=== PATIENT | female | born 1935 | race Caucasian/White ===

== ENCOUNTER → 2019-09-17 | Outpatient (CLI) | payer MEDICARE ==
[~2019-09-17] MED LIST: ASPI81TA85 PO; CALC600T60 PO; DOCU-129 PO; ENAL20TA PO; FIBE625T PO; FLUT15.820 NARES; GNP1000T11 PO; HYDR25TAB PO; KLOR10TA76 PO; NEUR300C PO; NORV5TAB PO; OMEP-221 PO; OXYB10TA23 PO; OXYC-517 PO; OYST1TAB PO; PURE500C5 PO; SM I PO; VITA500C24 PO; ZYRTTAB8 PO
== END ==
LOC: M LABSMTC 12:40
PROVIDERS: ATTEND Anesthesiology
DX: Z03.818 Encounter for observation for suspected exposure to other biological agents ruled out (principal); Z11.59 Encounter for screening for other viral diseases
CPT/HCPCS: C9803; U0003

== ENCOUNTER 2019-09-21 07:50 | Inpatient (IN) | payer MEDICARE ==
--- NOTE | 2019-09-17 06:43 | HPE ---
DATE OF ADMISSION: 09/21/2019 CHIEF COMPLAINT: Lumbar spinal stenosis. HISTORY OF PRESENT ILLNESS: Huma is a pleasant 83-year-old female with progressively worsening degenerative disk disease and spinal stenosis of the lumbar spine. She has failed to improve with conservative treatment. She has elected for surgery for her continued symptoms. She has pain with weightbearing activities and her activities of daily living. MRI is notable for significant degenerative disk disease and severe spinal stenosis. She has consented for a right sided L4-L5 unilateral laminectomy with a fusion in situ by Dr. Geoffrey Robertson. Medical optimization was performed by Dr. Lee. ALLERGIES: None. CURRENT MEDICATIONS: - oxybutynin 10 mg once a day - loratadine 10 mg a day - omeprazole 40 mg a day - baby aspirin once a day - calcium 600 mg plus D two tablets in the morning - amlodipine 5 mg in the a.m. - ibuprofen 600 mg twice a day - bisacodyl 5 mg one in the morning - hydrochlorothiazide 25 mg one in the morning - potassium 10 mEq one in the morning - enalapril 20 mg two in the morning - glucosamine chondroitin two in the morning and one in the evening - gabapentin 300 mg three times a day - vitamin C 500 mg one in the morning and one in the evening PAST MEDICAL HISTORY: 1. Hypertension. 2. Gastroesophageal reflux disease. PAST SURGICAL HISTORY: Not given. SOCIAL HISTORY: She is retired. Does not smoke. Does not drink alcohol. FAMILY HISTORY: Noncontributory. REVIEW OF SYSTEMS: This patient denies chest pain, heart palpitations, cough, wheezing, difficulty breathing and shortness of breath. She denies abdominal pain, nausea, vomiting, diarrhea or constipation. She denies recent upper respiratory infection or urinary tract infection symptoms. She does complain of chronic back pain. PHYSICAL EXAMINATION: General: She is a well-nourished, well-developed, in mild distress, alert female who walks with significant difficulty using a walker. Vital Signs: She is 62 inches tall, weighs 160 pounds, with a temperature of 97 degrees Fahrenheit, blood pressure 134/74, pulse of 72 and respirations of 17. Neck was supple without adenopathy or jugular venous distention. Lungs were clear to auscultation without rales or wheeze. Heart: Regular rate and rhythm. Abdomen: Bowel sounds were present. Extremities: Examination of the back revealed intact skin. LABORATORY DATA: Chest x-ray showed no acute cardiopulmonary disease processes. EKG showed 73 beats per minute. Blood type O+. CBC showed a hemoglobin of 11.4, hematocrit of 34.5, MCV of 76.3 and MCH of 25.2, otherwise within normal limits. Sodium 130, potassium 4.4, BUN 20, creatinine 1.0. IMPRESSION: Symptomatic spinal stenosis. PLAN: Consented for a right L4-5 laminectomy with fusion in situ by Dr. Geoffrey Robertson.
[~2019-09-21] VITALS: Ht 160 cm; Wt 74.4 kg
[2019-09-21] VITALS (8 sets, daily range): BP systolic 126–147; BP diastolic 62–84
[2019-09-21] MEDS: GABAPENTIN 300 MG CAP PO ONE ×2 (06:45→08:19)
[~2019-09-21 07:50] MED LIST changes: +LACRILUBE (AKWA TEARS) OPHTH OINT 3.5 GM As Ordered ONE; +LIDOCAINE 2% 100MG/5ML SDV (FOR ANES.) As Ordered ONE; +LR 1,000 ML IV ONE; +MIDAZOLAM INJ 2MG/2ML VIAL (J2250 PER 1MG) As Ordered ONE; -OXYC-517 PO; +PERCOCET 5MG/325MG TAB PO ONE; +ROCURONIUM BROMIDE 50 MG/5 ML VIAL As Ordered ONE; +ceFAZolin SOD 2 GM in IV 1 EA IV ONE; +fentaNYL 250 MCG/5 ML INJECTION (J3010) As Ordered ONE; +propofoL 200 MG/20 ML VIAL As Ordered ONE
[2019-09-21] MEDS ORDERED: BUPIVACAINE/EPIN 0.25% 30 ML VIAL As Ordered ONE (08:16)
[2019-09-21] MEDS ORDERED: BACITRACIN PWD 50,000 UNITS VIAL As Ordered ONE (08:16)
[2019-09-21] MEDS ORDERED: VANCOMYCIN 500MG/10ML VIAL As Ordered ONE (08:16)
[2019-09-21] MEDS ORDERED: THROMBIN SOLN 20,000 UNITS KIT As Ordered ONE (08:16)
[2019-09-21] MEDS ORDERED: TRANEXAMIC ACID 100 MG/ML 10ML VIAL As Ordered ONE (10:08)
[2019-09-21] MEDS ORDERED: EPINEPHrine INJ 1 MG/ML 1ML AMP As Ordered ONE (10:12)
[2019-09-21] MEDS ORDERED: BUPIVACAINE LIPOSOME/PF 1.3% 20ML VIAL (13.3MG/ML)(EXPAREL)(C9290 PER1MG) As Ordered ONE (10:16)
[2019-09-21] MEDS ORDERED: BUPIVACAINE HCL 0.25% 10ML VIAL As Ordered ONE (10:16)
[2019-09-21] MEDS ORDERED: ONDANSETRON 4MG/2ML VIAL As Ordered ONE (10:26)
[2019-09-21] MEDS ORDERED: KETOROLAC 60MG 2ML VIAL As Ordered ONE (10:26)
[2019-09-21] MEDS ORDERED: ACETAMINOPHEN 1000MG 100ML IV BTL (OFIRMEV) (J0131 PER 10MG) As Ordered ONE (10:26)
[2019-09-21] MEDS ORDERED: dexameTHASONE 4 MG/ML 1ML VIAL (J1100 PER 1MG) As Ordered ONE (10:26)
[2019-09-21] MEDS ORDERED: ePHEDrine SULFATE 25 MG/5 ML(5MG/ML) SYRINGE As Ordered ONE (10:37)
[2019-09-21] MEDS ORDERED: PHENYLephrine HCL 500 MCG/5 ML (100MCG/ML) SYRINGE (J2370) As Ordered ONE (10:39)
[2019-09-21] MEDS ORDERED: HYDROmorphone HCL 2 MG/ML 1ML VIAL (J1170) As Ordered ONE (11:10)
--- NOTE | 2019-09-21 11:37 | REP ---
PORTABLE LATERAL LUMBAR SPINE: A portable lateral lumbar spine image is performed. There is a metallic probe posteriorly. The tip is at the L4-5 level. There is mild anterior listhesis of L4 on L5. There is mild to moderate disc space narrowing at that level as well. Unreviewed
[2019-09-21] MEDS ORDERED: NEOSTIGMINE 10MG/10ML VIAL (J2710 PER 0.5MG) As Ordered ONE (11:40)
[2019-09-21] MEDS ORDERED: GLYCOPYRROLATE INJ 0.2 MG/ML 2 ML VIAL As Ordered ONE (11:40)
[2019-09-21] MEDS ORDERED: MORPHINE 2 MG/ML 1ML VIAL (J2270) IV PRN (12:45)
[2019-09-21] MEDS ORDERED: ONDANSETRON 4MG/2ML VIAL IV PRN ×3 (12:45→13:45)
[2019-09-21] MEDS ORDERED: fentaNYL 100 MCG/2 ML INJECTION (J3010) IV PRN ×2 (12:45→13:45)
[2019-09-21] MEDS ORDERED: PERCOCET 5MG/325MG TAB PO PRN ×2 (12:45→13:45)
[2019-09-21] MEDS ORDERED: LR 1,000 ML IV SCH ×2 (12:45→13:45)
[2019-09-21] MEDS ORDERED: METOCLOPRAMIDE INJ 10MG/2ML VIAL (J2765 PER 1) As Ordered ONE (13:24)
[2019-09-21] MEDS ORDERED: METOCLOPRAMIDE INJ 10MG/2ML VIAL (J2765 PER 1) IV PRN (13:45)
[2019-09-21] MEDS ORDERED: ceFAZolin SOD 2 GM in IV 1 EA IV ONE (15:30)
--- NOTE | 2019-09-21 16:43 | HPEPDOC ---
[facility] Medical History & Physical Date of Admission Sep 21, 2019 Date of Service: Sep 21, 2019 Attending Physician: Ana Novoa MD History and Physical MEDICAL CONSULT NOTE HISTORY OF PRESENT ILLNESS: Patient is an 83-year-old female with past medical history of hypertension, MOHINI D, chronic pain secondary to degenerative disc disease and spinal stenosis of the lumbar spine who was admitted on 09/21/2019 to undergo right-sided L4-L5 unilateral laminectomy with fusion by orthopedic surgery. The patient has had progressively worsening spinal stenosis of the lumbar spine along with degenerative disc disease for some time. Conservative treatments were tried as o utpatient however failed 20 through with these. The patient prior to her surgery was having pain with weightbearing activities and was affecting her kidneys a day living. The patient lives independently in a senior home and ambulates with a walker normally. On 09/21/2019 the patient underwent right-sided L5-L4 unilateral laminectomy with fusion by Dr. Robertson. There were no intraoperative or postoperative complications. She was assessed by myself postoperatively and only complained some left-sided flank pain and nausea postop. She denied chest pain, shortness of breath, fevers, chills, vomiting, diarrhea, coughing. The patient has no acute complaints postoperatively. REVIEW OF SYSTEMS: CONSTITUTIONAL: Denies lack of energy, unexplained weight gain or weight loss, loss of appetite, fever, night sweats EYES: Denies eye drainage, eye pain, visual changes, dry/irritated eye EARS, NOSE, MOUTH, THROAT: Denies difficulty hearing, ringing in ears, mouth sores, loose teeth, sore throat, facial numbness or pain NECK: Denies swollen glands CARDIOVASCULAR: Denies irregular heartbeat, racing heart, chest pains, swelling of feet or legs, pain in legs with walking RESPIRATORY: Denies shortness of breath, night sweats, wheezing, sputum production, oxygen at home, coughing up blood, cough lasting > 1 month GASTROINTESTINAL: Denies abdominal pain, constipation, bloody stool, diarrhea, heartburn, nausea, vomiting GENITOURINARY: Denies painful urination, bloody urine, frequent urination, urgency, leaking urine, impotence MUSCULOSKELETAL: Denies leg swelling INTEGUMENTARY: Denies rash, itching, new skin lesion, change in existing skin lesion, hair loss or increase, breast changes. NEUROLOGICAL: Denies headaches, dizziness, difficulty walking, numbness or tingling PSYCHIATRIC: Denies depression, anxiety, recurrent bad thoughts, mood swings, hallucinations PAST MEDICAL HISTORY: 1. GERD 2. Hypertension 3. Chronic lower lumbar back pain secondary to spinal stenosis 4. Degenerative disc disease 5. Urinary incontinence 6. Hypokalemia 7. Hx of Constipation PAST SURGICAL HISTORY: 1. Right L4-L5 laminectomy with fusion 09/21/2019 2. Cataract surgery FAMILY HISTORY: Father: Lung cancer. at age 69 Mother: Lung and throat cancer. at age 83. SOCIAL HISTORY: Denies smoking history, denies alcohol or illicit drug use. The patient lives independently in senior housing by herself. She walks with a walker prior to her surgery. She is a DNR/DNI. ALLERGIES: Please see below. HOME MEDICATIONS: Please see below. PHYSICAL EXAMINATION: CONSTITUTIONAL: No acute distress, resting comfortably, AAO x 3 EYES: PERRLA, EOM intact HENT, MOUTH: Normocephalic, atraumatic, moist mucous membranes, nasal cannula in place NECK: SUPPLE, no JVD, no lymphadenopathy, no carotid bruit CV: Regular rate and rhythm, S1S2 normal, no murmurs/rubs/gallops RESPIRATORY: Clear to auscultation bilaterally, no rales/rhonchi/wheezes GI: BS positive in 4 quadrants, soft, nontender, nondistended, no rebound or guarding, no organomegaly : Deferred MUSCULOSKELETAL: Normal ROM. No cyanosis, clubbing, swelling, joint deformity, nonpitting lower extremity edema INTEGUMENTARY: Mild bilateral flank bruising, incision in lumbar area appears fresh, nonsuppurative, sealed. otherwise skin is intact, no rashes, no lesions NEUROLOGIC: Cranial Nerves II-XII are intact, no focal deficits PSYCHIATRIC: Mood and affect are normal LABORATORY DATA: Please see below IMAGING: Portable lateral lumbar spine XR: There is a metallic probe posteriorly. The tip is at the L4-5 level. There is mild anterior listhesis of L4 on L5. There is mild to moderate disc space narrowing at that level as well. ASSESSMENT: 83 y/o F with PMH of HTN, urinary incontinence, chronic lower back pain 2/2 to spinal stenosis and DDD POD 0 for right L4-L5 laminectomy with fusion. PLAN: 1. Lumbar spinal stenosis status post right L4-L5 laminectomy with fusion. -POD 0, VS stable on 2 LNC -Pain controlled on current regimen of oxy/APAP -PT/OT as per ortho, adding incentive spirometer Q2 hrs while awake -Orthopedic surgery primary 2. Chronic lumbar back pain 2/2 to spinal stenosis, DDD -C/w oxy/APAP, restarted home dose gabapentin TID -Bowel regimen in place -PT/OT 3. Supplemental O2 requirement post-op -Denies SOB, saturating well on 2 L NC, no cough -Caution while on IVFs, stop if patient is tolerating PO well. -Would advise to continue to wean off gradually -Added IS Q2hrs while awake 4. HTN -BP systolic 120-150, currently on IVFs -Starting on home antihypertensive meds -D/c fluids when taking good PO 5. Hypokalemia. -Restart home KCL supplement 6. Urinary incontinence -Resume home med 7. GERD -PPI 8. DVT px. -SCDs, TEDs. Start anticoagulation when cleared by surgery. DISPOSITION: Currently we are consulted for medical management with orthopedic surgery primary. Plan is hopefully this patient to be discharged back to independent living, will need PT/OT evaluation. Thank you kindly for this consult. Vital Signs Vital Signs Date Time Temp Pulse Resp B/P (MAP) Pulse Ox O2 Delivery O2 Flow Rate FiO2 09/21/19 16:00 18 09/21/19 15:44 96.7 92 143/78 (99) 97 Nasal Cannula 2.0 Home Medications Scheduled Amlodipine Besylate (Norvasc) 5 Mg Tablet, 5 MG PO DAILY Ascorbic Acid (Vitamin C) 500 Mg Capsule, 500 MG PO BID Aspirin (Aspir 81) 81 Mg Tablet.dr, 81 MG PO DAILY Calcium Carbonate (Calcium) 600 Mg Tablet, 600 MG PO BID Calcium Polycarbophil (Fibercon) 625 Mg Tablet, 625 MG PO BID Cetirizine HCl/Pseudoephedrine (Zyrtec-D Tablet) 1 Each Tab.er.12h, 1 TAB PO DAILY Docusate Sodium (Stool Softener) 100 Mg Capsule, 100 MG PO DAILY Enalapril Maleate (Enalapril Maleate) 20 Mg Tablet, 20 MG PO BID Fluticasone Propionate (Fluticasone Propionate) 15.8 Ml [place].susp, 2 SPRAY NARES DAILY Gabapentin (Neurontin) 300 Mg Capsule, 300 MG PO TID Glucosamine Sulfate Dipot Chlr (Glucosamine) 1,000 Mg Tablet, 1,500 MG PO BID Hydrochlorothiazide (Hydrochlorothiazide) 25 Mg Tablet, 25 MG PO DAILY Ibuprofen (Ibuprofen Ib) 200 Mg Tablet, 600 MG PO BID Omeprazole (Omeprazole) 40 Mg Capsule.dr, 40 MG PO DAILY Oxybutynin Chloride (Oxybutynin Chloride ER) 10 Mg Tab.er.24, 10 MG PO DAILY Potassium Chloride (Klor-Con M10) 10 Meq Tab.er.prt, 10 MEQ PO DAILY Allergies Coded Allergies: No Known Allergies (Unverified , 09/14/19) A-FIB/CHADSVASC A-FIB History Current/History of A-Fib/PAF?: No Current PO Anticoag Therapy: No Age/Risk Factor Scoring CHADSVASC: CHADSVASC Response (Comments) Value Age Risk Factor Age >/= 75 years old 2 Gender Risk Factor Female 1 Hx of CHF No 0 Hx of HTN Yes 1 Hx of Stroke/TIA/or VTE No 0 Hx of Diabetes No 0 Hx of Vascular Disease No 0 Total 4 Treatment Treatment ordered: NONE Other anticoagulant ordered: SCDs and TEDs for now, post-op Ana Novoa MD Sep 21, 2019 16:42
[2019-09-21] MEDS ORDERED: SENNA 8.6 MG TAB (SENOKOT) PO PRN (17:15)
[2019-09-21] MEDS ORDERED: PROMETHAZINE INJ 25 MG/ML VIAL (J2550) IV ONE (18:00)
[2019-09-21] MEDS: METAMUCIL (PSYLLIUM) PACKET PO SCH (18:11)
[2019-09-21] MEDS: GABAPENTIN 300 MG CAP PO SCH ×2 (18:14→20:36)
[2019-09-21 20:21] LABS: VENOUS BASE EXCESS -8.4 (-2.0-2.0); VENOUS HCO3 17.9 MEQ/L (23.0-27.0); VENOUS O2 SATURATION 86.5 % (60.0-80.0); VENOUS PARTIAL PRESSURE CO2 39.5 mmHg (38.0-50.0); VENOUS PARTIAL PRESSURE O2 54.5 mmHg (30.0-50.0); VENOUS PH 7.273 UNITS (7.330-7.430); VENOUS STANDARD HCO3 17.5 MEQ/L; VENOUS TOTAL CO2 19.1 MEQ/L (24.0-28.0)
[2019-09-21 20:31] LABS: HEMATOCRIT 33.7 % (36.0-47.0); MEAN CORPUSCULAR HEMOGLOBIN 25.8 pg (27.0-33.0); MEAN CORPUSCULAR HGB CONC 32.6 g/dl (32.0-36.5); MEAN CORPUSCULAR VOLUME 79.1 fl (80.0-96.0); PLATELET COUNT, AUTOMATED 235 10^3/uL (150-450); RED BLOOD COUNT 4.26 10^6/uL (4.00-5.40); WHITE BLOOD COUNT 15.5 10^3/uL (4.0-10.0)
[2019-09-21] MEDS: DOCUSATE SODIUM 100 MG CAP PO SCH (20:36)
[2019-09-21 20:48] LABS: BLOOD UREA NITROGEN 18 MG/DL (7-18); CALCIUM LEVEL 9.2 MG/DL (8.8-10.2); CARBON DIOXIDE LEVEL 23 MEQ/L (21-32); CHLORIDE LEVEL 104 MEQ/L (98-107); CREATININE FOR GFR 0.92 MG/DL (0.55-1.30); GLOMERULAR FILTRATION RATE > 60.0 (>32); GLUCOSE, FASTING 147 MG/DL (70-100); POTASSIUM SERUM 4.3 MEQ/L (3.5-5.1); SODIUM LEVEL 133 MEQ/L (136-145)
[2019-09-21] MEDS ORDERED: GABAPENTIN 300 MG CAP PO SCH (21:00)
[2019-09-22 02:00] VITALS: BP 131/60
[2019-09-22 06:00] VITALS: BP 104/57
[2019-09-22 06:11] LABS: HEMATOCRIT 30.1 % (36.0-47.0); HEMOGLOBIN 9.8 g/dl (12.0-15.5); MEAN CORPUSCULAR HEMOGLOBIN 25.6 pg (27.0-33.0); MEAN CORPUSCULAR HGB CONC 32.6 g/dl (32.0-36.5); MEAN CORPUSCULAR VOLUME 78.6 fl (80.0-96.0); PLATELET COUNT, AUTOMATED 241 10^3/uL (150-450); RED BLOOD COUNT 3.83 10^6/uL (4.00-5.40); WHITE BLOOD COUNT 13.7 10^3/uL (4.0-10.0)
[2019-09-22 06:40] LABS: ALT/SGPT 14 U/L (12-78); BILIRUBIN,TOTAL 0.2 MG/DL (0.2-1.0); BLOOD UREA NITROGEN 18 MG/DL (7-18); CALCIUM LEVEL 9.2 MG/DL (8.8-10.2); CARBON DIOXIDE LEVEL 23 MEQ/L (21-32); CHLORIDE LEVEL 102 MEQ/L (98-107); CREATININE FOR GFR 0.84 MG/DL (0.55-1.30); GLOMERULAR FILTRATION RATE > 60.0 (>32); GLUCOSE, FASTING 118 MG/DL (70-100); POTASSIUM SERUM 4.6 MEQ/L (3.5-5.1); SODIUM LEVEL 134 MEQ/L (136-145); TOTAL PROTEIN 5.7 GM/DL (6.4-8.2)
[2019-09-22] MEDS: amLODIPine 5 MG TAB PO SCH (08:37)
[2019-09-22] MEDS: hydroCHLOROthiazide 25 MG TAB PO SCH (08:39)
[2019-09-22] MEDS: METAMUCIL (PSYLLIUM) PACKET PO SCH (08:45)
[2019-09-22] MEDS: OMEPRAZOLE 20 MG CAP PO SCH (08:46)
[2019-09-22] MEDS: oxyBUTYnin *DITROPAN XL* 5 MG TABCR PO SCH (08:46)
[2019-09-22] MEDS: DOCUSATE SODIUM 100 MG CAP PO SCH ×2 (08:46→20:47)
[2019-09-22] MEDS: ACETAMINOPHEN TAB 650MG DOSE (2X325MG) PO PRN ×2 (08:46→16:17)
[2019-09-22] MEDS: GABAPENTIN 300 MG CAP PO SCH ×3 (08:46→20:48)
[2019-09-22] MEDS: FLUTICASONE PROP 0.05% NASAL SPRAY 16 GM (FLONASE) NARES SCH (08:46)
[2019-09-22] MEDS ORDERED: POTASSIUM CHLORIDE 10 MEQ SR TABLET PO SCH (09:00)
[2019-09-22 10:18] VITALS: BP 140/64
--- NOTE | 2019-09-22 12:17 | IPNPDOC ---
Text Note Date of Service The patient was seen on 09/22/19. NOTE Subjective: Patient is an 83-year-old female with PMHx of HTN, Chronic pain 2/2 DDD / Spinal stenosis, GERD who presented to [facility] for an elective orthopedic procedure. Hospitalist service with consultation for medical management. On 09/21/2019 the patient underwent right-sided L5-L4 unilateral laminectomy with fusion by Dr. Robertson. There were no intraoperative or postoperative complications. Patient was seen and examined at the bedside. Patient appears to be in no acute distress this morning. Denies any chest pain, short of breath, palpitations or cough. Has not expense, positive vomiting, abdominal pain. She has not yet expensive bowel movement. She will be working with physical therapy today. Objective: Vitals (See below) General: Lying in bed, appears comfortable, AAOx3 HEENT: NC, AT CVS: +S1S2 Lungs: Fair air entry b/l, no appreciable wheezing, rhonchi, rales Abdomen: Soft, ND, NT Extremities: No edema appreciated at lower extremities, - Calf tenderness Assessment and plan: Lumbar spinal stenosis - s/p right L4-L5 laminectomy with fusion - Has received outpatient medical clearance from her primary care provider - Pain control, anticoagulation and physical therapy at the direction of orthopedic surgery - Will start PT /O T today HTN - BP appears to be well controlled this morning - We'll place holding parameters on HCTZ and amlodipine Hx of Hypokalemia - Potassium levels normal - Will stop supplementation for now Urinary incontinence - c/w Oxybutynin GERD - c/w Omeprazole DVT prophylaxis - c/w TEDs/Sequentials - Anticoagulation as per orthopedic surgery Disposition: - c/w PT and OT - Anticipate DC tomorrow VS,Reedbone, I+O VS, Reedbone, I+O Laboratory Tests 09/21/19 20:15 09/22/19 05:33 Vital Signs Date Time Temp Pulse Resp B/P (MAP) Pulse Ox O2 Delivery O2 Flow Rate FiO2 09/22/19 10:18 98.4 98 16 140/64 (89) 95 Room Air 09/22/19 02:00 2.0 I&O- Last 24 Hours up to 6 AM 09/22/19 06:00 Intake Total 2520 ml Output Total 1090 ml Balance 1430 ml EDELMIRA DE ANDA MD Sep 22, 2019 12:17
[2019-09-22 14:15] VITALS: BP 127/62
[2019-09-22] MEDS: PERCOCET 5MG/325MG TAB PO PRN (20:48)
[2019-09-22 22:00] VITALS: BP 145/77
[2019-09-23 06:00] VITALS: BP 138/82
[2019-09-23] MEDS ORDERED: OXYC-517 PO (06:28)
[2019-09-23] MEDS: amLODIPine 5 MG TAB PO SCH (09:26)
[2019-09-23] MEDS: GABAPENTIN 300 MG CAP PO SCH ×3 (09:26→20:05)
[2019-09-23] MEDS: METAMUCIL (PSYLLIUM) PACKET PO SCH (09:26)
[2019-09-23] MEDS: hydroCHLOROthiazide 25 MG TAB PO SCH (09:27)
[2019-09-23] MEDS: OMEPRAZOLE 20 MG CAP PO SCH (09:27)
[2019-09-23] MEDS: DOCUSATE SODIUM 100 MG CAP PO SCH ×2 (09:27→20:05)
[2019-09-23] MEDS: FLUTICASONE PROP 0.05% NASAL SPRAY 16 GM (FLONASE) NARES SCH (09:27)
[2019-09-23] MEDS: oxyBUTYnin *DITROPAN XL* 5 MG TABCR PO SCH (09:27)
[2019-09-23] MEDS: PERCOCET 5MG/325MG TAB PO PRN ×2 (09:31→17:34)
--- NOTE | 2019-09-23 12:42 | IPNPDOC ---
Text Note Date of Service The patient was seen on 09/23/19. NOTE Subjective: Patient is an 83-year-old female with PMHx of HTN, Chronic pain 2/2 DDD / Spinal stenosis, GERD who presented to [facility] for an elective orthopedic procedure. Hospitalist service with consultation for medical management. On 09/21/2019 the patient underwent right-sided L5-L4 unilateral laminectomy with fusion by Dr. Robertson. There were no intraoperative or postoperative complications. Patient was seen and examined at the bedside. Patient is working with physical therapy, however, she feels that she is not ready to get home today. Denies a nausea, vomiting, chest pain, palpitations. Has been passing gas and has been urinating without any difficulty. Objective: Vitals (See below) General: Lying in bed, remains comfortable, AAOx3 HEENT: NC, AT CVS: +S1S2 Lungs: air entry is fair bilaterally without evidence of rhonchi, crackles or wheezing Abdomen: Soft, nondistended, without tenderness Extremities: Lower extremities are free of pitting edema, - Calf tenderness Assessment and plan: Lumbar spinal stenosis - s/p right L4-L5 laminectomy with fusion - Has received outpatient medical clearance from her primary care provider - Pain control, anticoagulation and physical therapy at the direction of orthopedic surgery - c/w PT / OT - anticipate discharge within 24 hours HTN - BP well controlled - Will place holding parameters on HCTZ and amlodipine Hx of Hypokalemia - Potassium levels normal - s/p Supplementation Urinary incontinence - c/w Oxybutynin GERD - c/w Omeprazole DVT prophylaxis - c/w TEDs/Sequentials - Anticoagulation as per orthopedic surgery Disposition: - c/w PT and OT; awaiting clearance - Will get lab work tomorrow AM VS,Fishbone, I+O VS, Fishbone, I+O Vital Signs Date Time Temp Pulse Resp B/P (MAP) Pulse Ox O2 Delivery O2 Flow Rate FiO2 09/23/19 10:01 18 Room Air 09/23/19 09:26 98 138/82 09/23/19 06:00 98.6 94 09/22/19 02:00 2.0 I&O- Last 24 Hours up to 6 AM 09/23/19 05:59 Intake Total 660 ml Output Total 550 ml Balance 110 ml EDELMIRA DE ANDA MD Sep 23, 2019 12:42
[2019-09-23 22:00] VITALS: BP 138/68
[2019-09-24 06:00] VITALS: BP 137/69
[2019-09-24 06:58] LABS: BASO % 0.2 % (0.0-1.0); EOS % 0.1 % (0.0-3.0); HEMATOCRIT 29.4 % (36.0-47.0); HEMOGLOBIN 9.8 g/dl (12.0-15.5); LYMPH # 0.8 10^3/uL (1.5-5.0); LYMPH % 5.7 % (24.0-44.0); MEAN CORPUSCULAR HEMOGLOBIN 25.8 pg (27.0-33.0); MEAN CORPUSCULAR HGB CONC 33.3 g/dl (32.0-36.5); MEAN CORPUSCULAR VOLUME 77.4 fl (80.0-96.0); MONO # 1.3 10^3/uL (0.0-0.8); MONO % 9.3 % (0.0-5.0); NEUTROPHILS # 11.9 10^3/uL (1.5-8.5); NEUTROPHILS % 84.1 % (36.0-66.0); PLATELET COUNT, AUTOMATED 213 10^3/uL (150-450); WHITE BLOOD COUNT 14.1 10^3/uL (4.0-10.0)
[2019-09-24 07:28] LABS: BLOOD UREA NITROGEN 13 MG/DL (7-18); CALCIUM LEVEL 8.8 MG/DL (8.8-10.2); CARBON DIOXIDE LEVEL 25 MEQ/L (21-32); CHLORIDE LEVEL 97 MEQ/L (98-107); CREATININE FOR GFR 0.69 MG/DL (0.55-1.30); GLOMERULAR FILTRATION RATE > 60.0 (>32); GLUCOSE, FASTING 97 MG/DL (70-100); MAGNESIUM LEVEL 1.7 MG/DL (1.8-2.4); POTASSIUM SERUM 3.8 MEQ/L (3.5-5.1); SODIUM LEVEL 131 MEQ/L (136-145)
[2019-09-24] MEDS: GABAPENTIN 300 MG CAP PO SCH ×3 (08:32→20:06)
[2019-09-24] MEDS: OMEPRAZOLE 20 MG CAP PO SCH (08:32)
[2019-09-24] MEDS: hydroCHLOROthiazide 25 MG TAB PO SCH (08:32)
[2019-09-24] MEDS: FLUTICASONE PROP 0.05% NASAL SPRAY 16 GM (FLONASE) NARES SCH (08:32)
[2019-09-24] MEDS: DOCUSATE SODIUM 100 MG CAP PO SCH ×2 (08:32→20:06)
[2019-09-24] MEDS: amLODIPine 5 MG TAB PO SCH (08:32)
[2019-09-24] MEDS: oxyBUTYnin *DITROPAN XL* 5 MG TABCR PO SCH (08:32)
[2019-09-24] MEDS: METAMUCIL (PSYLLIUM) PACKET PO SCH (08:32)
[2019-09-24] MEDS ORDERED: MAG SULF 1GM/100ML (MAG RUN) 1 GM in IV 1 EA IV ONE (11:00)
--- NOTE | 2019-09-24 11:18 | IPNPDOC ---
Text Note Date of Service The patient was seen on 09/24/19. NOTE Subjective: Patient is an 83-year-old female with PMHx of HTN, Chronic pain 2/2 DDD / Spinal stenosis, GERD who presented to [facility] for an elective orthopedic procedure. Hospitalist service with consultation for medical management. On 09/21/2019 the patient underwent right-sided L5-L4 unilateral laminectomy with fusion by Dr. Robertson. There were no intraoperative or postoperative complications. Patient was seen and examined at the bedside. Patient continues work with physical therapy, however, will likely require rehabilitation moving forward. Denies any problem. Overnight, has been having the ability to pass gas. Has not had any bowel movements. Denies any urinary discomfort. Objective: Vitals (See below) General: Lying in bed, appears comfortable, AAOx3 HEENT: NC, AT CVS: +S1S2 Lungs: There appears to be fair air entry bilaterally without evidence of rhonchi, crackles or wheezing Abdomen: Abdomen is soft, without any distention or tenderness Extremities: Again, no edema appreciated. Lower extremities, - Calf tenderness Assessment and plan: Lumbar spinal stenosis - s/p right L4-L5 laminectomy with fusion - Has received outpatient medical clearance from her primary care provider - Pain control, anticoagulation and physical therapy at the direction of orthopedic surgery - c/w PT / OT; recommendations for continued rehabilitation moving forward - possibly tomorrow HTN - BP well controlled - c/w HCTZ and amlodipine with hold parameters Hx of Hypokalemia - Potassium levels normal - Will resume supplementation Urinary incontinence - c/w Oxybutynin GERD - c/w Omeprazole DVT prophylaxis - c/w TEDs/Sequentials - Anticoagulation as per orthopedic surgery Disposition: - c/w PT and OT; awaiting clearance - Will get lab work tomorrow AM VS,Fishbone, I+O VS, Fishbone, I+O Laboratory Tests 09/24/19 06:38 Vital Signs Date Time Temp Pulse Resp B/P (MAP) Pulse Ox O2 Delivery O2 Flow Rate FiO2 09/24/19 08:32 97 137/69 09/24/19 06:00 98.6 17 92 Room Air 09/22/19 02:00 2.0 I&O- Last 24 Hours up to 6 AM 09/24/19 05:59 Intake Total 1360 ml Output Total 0 ml Balance 1360 ml EDELMIRA DE ANDA MD Sep 24, 2019 11:17
[2019-09-24] MEDS: POTASSIUM CHLORIDE 10 MEQ SR TABLET PO SCH (12:00)
[2019-09-24] MEDS: ACETAMINOPHEN TAB 650MG DOSE (2X325MG) PO PRN ×2 (12:00→20:06)
[2019-09-24 14:00] VITALS: BP 147/66
[2019-09-24 22:00] VITALS: BP 149/73
[2019-09-25] MEDS: ACETAMINOPHEN TAB 650MG DOSE (2X325MG) PO PRN ×2 (05:21→20:25)
[2019-09-25 05:29] VITALS: BP 131/84
[2019-09-25 07:11] LABS: BASO # 0.1 10^3/uL (0.0-0.2); BASO % 0.4 % (0.0-1.0); EOS # 0.1 10^3/uL (0.0-0.5); EOS % 0.9 % (0.0-3.0); HEMATOCRIT 27.8 % (36.0-47.0); HEMOGLOBIN 9.2 g/dl (12.0-15.5); LYMPH % 7.9 % (24.0-44.0); MEAN CORPUSCULAR HEMOGLOBIN 25.2 pg (27.0-33.0); MEAN CORPUSCULAR HGB CONC 33.1 g/dl (32.0-36.5); MEAN CORPUSCULAR VOLUME 76.2 fl (80.0-96.0); MONO # 1.6 10^3/uL (0.0-0.8); MONO % 12.9 % (0.0-5.0); NEUTROPHILS # 9.4 10^3/uL (1.5-8.5); NEUTROPHILS % 77.2 % (36.0-66.0); PLATELET COUNT, AUTOMATED 269 10^3/uL (150-450); RED BLOOD COUNT 3.65 10^6/uL (4.00-5.40); WHITE BLOOD COUNT 12.1 10^3/uL (4.0-10.0)
[2019-09-25 07:29] LABS: BLOOD UREA NITROGEN 13 MG/DL (7-18); CALCIUM LEVEL 8.8 MG/DL (8.8-10.2); CARBON DIOXIDE LEVEL 26 MEQ/L (21-32); CHLORIDE LEVEL 97 MEQ/L (98-107); CREATININE FOR GFR 0.75 MG/DL (0.55-1.30); GLOMERULAR FILTRATION RATE > 60.0 (>32); GLUCOSE, FASTING 92 MG/DL (70-100); MAGNESIUM LEVEL 1.9 MG/DL (1.8-2.4); POTASSIUM SERUM 3.7 MEQ/L (3.5-5.1); SODIUM LEVEL 131 MEQ/L (136-145)
[2019-09-25] MEDS: DOCUSATE SODIUM 100 MG CAP PO SCH ×2 (08:30→20:20)
[2019-09-25] MEDS: OMEPRAZOLE 20 MG CAP PO SCH (08:31)
[2019-09-25] MEDS: oxyBUTYnin *DITROPAN XL* 5 MG TABCR PO SCH (08:31)
[2019-09-25] MEDS: amLODIPine 5 MG TAB PO SCH (08:32)
[2019-09-25] MEDS: GABAPENTIN 300 MG CAP PO SCH ×3 (08:32→20:20)
[2019-09-25] MEDS: POTASSIUM CHLORIDE 10 MEQ SR TABLET PO SCH (08:32)
[2019-09-25] MEDS: METAMUCIL (PSYLLIUM) PACKET PO SCH (08:33)
[2019-09-25] MEDS: hydroCHLOROthiazide 25 MG TAB PO SCH (08:33)
[2019-09-25] MEDS: FLUTICASONE PROP 0.05% NASAL SPRAY 16 GM (FLONASE) NARES SCH (08:35)
--- NOTE | 2019-09-25 10:10 | IPNPDOC ---
Text Note Date of Service The patient was seen on 09/25/19. NOTE Subjective: Patient is an 83-year-old female with PMHx of HTN, Chronic pain 2/2 DDD / Spinal stenosis, GERD who presented to [facility] for an elective orthopedic procedure. Hospitalist service with consultation for medical management. On 09/21/2019 the patient underwent right-sided L5-L4 unilateral laminectomy with fusion by Dr. Robertson. There were no intraoperative or postoperative complications. Patient was seen and examined at the bedside. Patient reports that overnight she had a low-grade temperature. Reported some chills. Denies any nausea, vomiting, abdominal pain, diarrhea. Patient does report some lower abdominal discomfort. Denies any discomfort with urination. Objective: Vitals (See below) General: Lying in bed, is awake, alert and oriented and appears to be comfortable while in bed HEENT: NC, AT CVS: +S1S2 Lungs: There appears to be fair air entry bilaterally without evidence of rhonchi, crackles or wheezing Abdomen: Soft, mild tenderness noted at suprapubic region. No distention Extremities: Lower extremity are free of pitting edema, - Calf tenderness Assessment and plan: Lumbar spinal stenosis - s/p Right L4-L5 Laminectomy with fusion - Has received outpatient medical clearance from her primary care provider - Pain control, anticoagulation and physical therapy at the direction of orthopedic surgery - c/w PT / OT; recommendations for continued rehabilitation moving forward - possibly tomorrow Low grade temperature - Patient reports some chills - Mild leukocytosis persists - UA with possible signs of infection; Awaiting urine culture - Will start Cefdinir HTN - BP well controlled - c/w HCTZ and amlodipine with hold parameters Hx of Hypokalemia - Potassium levels normal - c/w supplementation Urinary incontinence - c/w Oxybutynin GERD - c/w Omeprazole DVT prophylaxis - c/w TEDs/Sequentials - Anticoagulation as per orthopedic surgery Disposition: - c/w PT and OT; awaiting clearance Greg HAN, I+O VSGreg, I+O Laboratory Tests 09/25/19 06:47 Vital Signs Date Time Temp Pulse Resp B/P (MAP) Pulse Ox O2 Delivery O2 Flow Rate FiO2 09/25/19 08:32 90 131/84 09/25/19 05:29 98.3 18 96 Room Air 09/22/19 02:00 2.0 I&O- Last 24 Hours up to 6 AM 09/25/19 06:00 Intake Total 500 ml Output Total 0 ml Balance 500 ml EDELMIRA DE ANDA MD Sep 25, 2019 10:10
[2019-09-25] MEDS: CEFDINIR 300 MG CAP (OMNICEF) PO SCH ×2 (11:07→20:20)
[2019-09-26 06:20] VITALS: BP 138/66
[2019-09-26 07:42] LABS: BASO # 0.1 10^3/uL (0.0-0.2); BASO % 0.6 % (0.0-1.0); EOS # 0.1 10^3/uL (0.0-0.5); EOS % 1.2 % (0.0-3.0); HEMATOCRIT 30.1 % (36.0-47.0); HEMOGLOBIN 9.8 g/dl (12.0-15.5); LYMPH # 1.3 10^3/uL (1.5-5.0); LYMPH % 12.1 % (24.0-44.0); MEAN CORPUSCULAR HEMOGLOBIN 25.3 pg (27.0-33.0); MEAN CORPUSCULAR HGB CONC 32.6 g/dl (32.0-36.5); MEAN CORPUSCULAR VOLUME 77.6 fl (80.0-96.0); MONO # 1.7 10^3/uL (0.0-0.8); MONO % 15.8 % (0.0-5.0); NEUTROPHILS # 7.4 10^3/uL (1.5-8.5); NEUTROPHILS % 69.5 % (36.0-66.0); PLATELET COUNT, AUTOMATED 336 10^3/uL (150-450); RED BLOOD COUNT 3.88 10^6/uL (4.00-5.40); WHITE BLOOD COUNT 10.6 10^3/uL (4.0-10.0)
[2019-09-26 07:51] LABS: BLOOD UREA NITROGEN 15 MG/DL (7-18); CARBON DIOXIDE LEVEL 24 MEQ/L (21-32); CHLORIDE LEVEL 96 MEQ/L (98-107); CREATININE FOR GFR 0.74 MG/DL (0.55-1.30); GLOMERULAR FILTRATION RATE > 60.0 (>32); GLUCOSE, FASTING 82 MG/DL (70-100); MAGNESIUM LEVEL 1.9 MG/DL (1.8-2.4); POTASSIUM SERUM 3.7 MEQ/L (3.5-5.1); SODIUM LEVEL 129 MEQ/L (136-145)
[2019-09-26] MEDS: oxyBUTYnin *DITROPAN XL* 5 MG TABCR PO SCH (09:04)
[2019-09-26] MEDS: POTASSIUM CHLORIDE 10 MEQ SR TABLET PO SCH (09:04)
[2019-09-26] MEDS: OMEPRAZOLE 20 MG CAP PO SCH (09:04)
[2019-09-26] MEDS: CEFDINIR 300 MG CAP (OMNICEF) PO SCH ×2 (09:04→20:25)
[2019-09-26] MEDS: hydroCHLOROthiazide 25 MG TAB PO SCH (09:05)
[2019-09-26] MEDS: amLODIPine 5 MG TAB PO SCH (09:05)
[2019-09-26] MEDS: GABAPENTIN 300 MG CAP PO SCH ×3 (09:05→20:25)
[2019-09-26] MEDS: DOCUSATE SODIUM 100 MG CAP PO SCH ×2 (09:05→20:25)
[2019-09-26] MEDS: METAMUCIL (PSYLLIUM) PACKET PO SCH (09:05)
[2019-09-26] MEDS: FLUTICASONE PROP 0.05% NASAL SPRAY 16 GM (FLONASE) NARES SCH (09:06)
[2019-09-26] MEDS: ACETAMINOPHEN TAB 650MG DOSE (2X325MG) PO PRN ×2 (09:10→20:25)
[2019-09-26 14:00] VITALS: BP 139/63
[2019-09-27 06:25] VITALS: BP 139/62
[2019-09-27 06:43] LABS: BASO # 0.1 10^3/uL (0.0-0.2); BASO % 0.7 % (0.0-1.0); EOS # 0.1 10^3/uL (0.0-0.5); EOS % 1.5 % (0.0-3.0); HEMOGLOBIN 9.2 g/dl (12.0-15.5); LYMPH # 1.1 10^3/uL (1.5-5.0); LYMPH % 11.9 % (24.0-44.0); MEAN CORPUSCULAR HEMOGLOBIN 25.1 pg (27.0-33.0); MEAN CORPUSCULAR HGB CONC 32.9 g/dl (32.0-36.5); MEAN CORPUSCULAR VOLUME 76.3 fl (80.0-96.0); MONO # 1.6 10^3/uL (0.0-0.8); MONO % 16.9 % (0.0-5.0); NEUTROPHILS # 6.5 10^3/uL (1.5-8.5); NEUTROPHILS % 68.1 % (36.0-66.0); PLATELET COUNT, AUTOMATED 321 10^3/uL (150-450); RED BLOOD COUNT 3.67 10^6/uL (4.00-5.40); WHITE BLOOD COUNT 9.6 10^3/uL (4.0-10.0)
[2019-09-27 07:10] LABS: BLOOD UREA NITROGEN 14 MG/DL (7-18); CALCIUM LEVEL 8.8 MG/DL (8.8-10.2); CARBON DIOXIDE LEVEL 24 MEQ/L (21-32); CHLORIDE LEVEL 97 MEQ/L (98-107); CREATININE FOR GFR 0.74 MG/DL (0.55-1.30); GLOMERULAR FILTRATION RATE > 60.0 (>32); GLUCOSE, FASTING 89 MG/DL (70-100); MAGNESIUM LEVEL 1.9 MG/DL (1.8-2.4); SODIUM LEVEL 128 MEQ/L (136-145)
[2019-09-27] MEDS: hydroCHLOROthiazide 25 MG TAB PO SCH (09:00)
[2019-09-27] MEDS: oxyBUTYnin *DITROPAN XL* 5 MG TABCR PO SCH (09:01)
[2019-09-27] MEDS: CEFDINIR 300 MG CAP (OMNICEF) PO SCH ×2 (09:01→21:04)
[2019-09-27] MEDS: POTASSIUM CHLORIDE 10 MEQ SR TABLET PO SCH (09:01)
[2019-09-27] MEDS: GABAPENTIN 300 MG CAP PO SCH ×3 (09:01→21:03)
[2019-09-27] MEDS: OMEPRAZOLE 20 MG CAP PO SCH (09:01)
[2019-09-27] MEDS: FLUTICASONE PROP 0.05% NASAL SPRAY 16 GM (FLONASE) NARES SCH (09:02)
[2019-09-27] MEDS: amLODIPine 5 MG TAB PO SCH (09:02)
[2019-09-27] MEDS: DOCUSATE SODIUM 100 MG CAP PO SCH ×2 (09:02→21:03)
[2019-09-27] MEDS: METAMUCIL (PSYLLIUM) PACKET PO SCH (09:02)
[2019-09-27] MEDS: ACETAMINOPHEN TAB 650MG DOSE (2X325MG) PO PRN ×2 (09:04→21:04)
[2019-09-27] MEDS ORDERED: MIRALAX *UNIT DOSE* 17GM PACKET PO PRN (21:15)
[2019-09-28] MEDS: ACETAMINOPHEN TAB 650MG DOSE (2X325MG) PO PRN ×3 (03:29→20:59)
[2019-09-28 06:21] VITALS: BP 121/57
[2019-09-28 06:23] LABS: BASO # 0.1 10^3/uL (0.0-0.2); BASO % 0.8 % (0.0-1.0); EOS # 0.1 10^3/uL (0.0-0.5); EOS % 1.5 % (0.0-3.0); HEMATOCRIT 27.5 % (36.0-47.0); LYMPH # 1.3 10^3/uL (1.5-5.0); LYMPH % 13.9 % (24.0-44.0); MEAN CORPUSCULAR HEMOGLOBIN 25.4 pg (27.0-33.0); MEAN CORPUSCULAR HGB CONC 32.7 g/dl (32.0-36.5); MEAN CORPUSCULAR VOLUME 77.5 fl (80.0-96.0); MONO # 1.5 10^3/uL (0.0-0.8); MONO % 16.9 % (0.0-5.0); NEUTROPHILS % 65.6 % (36.0-66.0); PLATELET COUNT, AUTOMATED 331 10^3/uL (150-450); RED BLOOD COUNT 3.55 10^6/uL (4.00-5.40); WHITE BLOOD COUNT 9.1 10^3/uL (4.0-10.0)
[2019-09-28 06:43] LABS: BLOOD UREA NITROGEN 14 MG/DL (7-18); CARBON DIOXIDE LEVEL 24 MEQ/L (21-32); CHLORIDE LEVEL 96 MEQ/L (98-107); CREATININE FOR GFR 0.78 MG/DL (0.55-1.30); GLOMERULAR FILTRATION RATE > 60.0 (>32); GLUCOSE, FASTING 91 MG/DL (70-100); POTASSIUM SERUM 4.2 MEQ/L (3.5-5.1); SODIUM LEVEL 128 MEQ/L (136-145)
[2019-09-28] MEDS: DOCUSATE SODIUM 100 MG CAP PO SCH ×2 (08:59→20:58)
[2019-09-28] MEDS: GABAPENTIN 300 MG CAP PO SCH ×3 (08:59→20:58)
[2019-09-28] MEDS: POTASSIUM CHLORIDE 10 MEQ SR TABLET PO SCH (08:59)
[2019-09-28] MEDS: OMEPRAZOLE 20 MG CAP PO SCH (08:59)
[2019-09-28] MEDS: CEFDINIR 300 MG CAP (OMNICEF) PO SCH ×2 (08:59→20:58)
[2019-09-28] MEDS: oxyBUTYnin *DITROPAN XL* 5 MG TABCR PO SCH (09:00)
[2019-09-28] MEDS: hydroCHLOROthiazide 25 MG TAB PO SCH (09:00)
[2019-09-28] MEDS: FLUTICASONE PROP 0.05% NASAL SPRAY 16 GM (FLONASE) NARES SCH (09:00)
[2019-09-28] MEDS: amLODIPine 5 MG TAB PO SCH (09:01)
[2019-09-28] MEDS: METAMUCIL (PSYLLIUM) PACKET PO SCH (09:01)
--- NOTE | 2019-09-28 17:20 | RO ---
DATE OF PROCEDURE: 09/21/2019 PREOPERATIVE DIAGNOSES: Lumbar spinal stenosis at L4 and L5, lumbar spondylolisthesis at L4 and L5, neurogenic claudication bilateral lower extremities. POSTOPERATIVE DIAGNOSES: Lumbar spinal stenosis at L4 and L5, lumbar spondylolisthesis at L4 and L5, neurogenic claudication bilateral lower extremities. PROCEDURE PERFORMED: L4 unilateral laminectomy, right L5 unilateral laminectomy, right additional level L4-5, L5-S1, posterior intertransverse arthrodesis. [place] and placement of left iliac crest morselized bone graft for spine surgery. SURGEON: Geoffrey Robertson MD YARN DUMPER: Harinder Alcala, Physician Billet Bed Operator. ANESTHESIA: General. ESTIMATED BLOOD LOSS: Less than 70 mL, replaced with crystalloid. No complications. INDICATIONS: Intractable discomfort in the back radiating down the right more than the left lower extremity. Consent reviewed in detail with the patient including a shubham discussion of the pathology involved, the procedure proposed, alternatives including doing nothing, risks including, but not limited to, pain, failure, infection, bleeding, blood loss, incomplete relief, nerve injury and other issues. Agreed to proceed. DESCRIPTION OF PROCEDURE: Identified in holding area, site and side verified, brought to the operating room, once anesthesia was administered, positioned on the [place] frame. Once I and the electrical assemblies supervisor were comfortable with the patient's positioning, she was then sterilely prepped and draped in usual fashion. Time-out was accomplished. I initially stood on the patient's right but did alternate through frazier points of the procedure. I utilized loupe magnification and a headlamp, also I utilized the microscope. Mr. Alcala stood on the left. Incision was infiltrated with 0.25% Marcaine with epinephrine. Incision was made just to the right of midline using a #10 blade knife, developed down through skin and subcuticular tissues to the posterior lumbar fascia. The posterior lumbar fascia was reflected off of the spinous process of L4, L5 through S1, so the dissection continued down to the surface of the L5 lamina. A divot was drilled in the L5 lamina. A Johnson-Gurinder placed in the divot, cross-table lateral x-ray was taken to verify our level. Next, at this stage, we switched sides. I dissected down the contralateral side to expose the facet complex at L4-5 through the top of sacral ala and Mr. Alcala utilized Destini retractors to help me expose the transverse processes of L4, L5 to the sacral ala. Next, once this was accomplished the operating microscope was draped, my loupe and headlamp were removed, the scope was brought in. Mr. Alcala utilized oculars on the left, I oculars on the right. I debrided the hypertrophic facet of L4-5 with a Leksell, posterior lamina with a Leksell. I then utilized the high-speed bur to implement a left unilateral laminectomy. Mr. Alcala utilized retractors as well as the suction apparatus to assist. We utilized the Lukens trap on the suction to evacuate trev millings. We burred through the bare area of L4, we removed approximately 50% of the L4-5 facet complex. We burred through the L5 lamina as well further exposing the ligamentum flavum and at the bare area of the thecal sac. The ligamentum flavum was elevated using curettes and removed using Kerrisons. I then implemented a decompression of the lateral recess and subarticular space at L4 for the exiting nerve root and along the traversing nerve root through L5. Next, the left contralateral side was also decompressed using curettes and Kerrisons carefully over the horizon decompressing the subarticular space. Once this was accomplished, we irrigated, including irrigation with TXA, which was allowed to window installation subcontractor this portion of the wound for hemostasis. Next, the posterior-superior left iliac crest was exposed, opened using the hot knife and the iliac crest was opened using Leksells, bone graft was retained. I utilized Roberto curettes to remove additional morselized iliac crest. This was irrigated, packed with Gelfoam and TXA. Fascial wound was closed using interrupted stitch. Next, once this was accomplished, I placed the iliac crest bone graft between the transverse processes of L4 and L5 on the patient's left side. I also missed the harvested Lukens trap trev millings with 30 mL of crushed cancellus was placed in the intertransverse as well as the interlaminar space extending from L4 to the top of the sacral ala on the left. Next, on the right side, I utilized the Destini retractors to expose the transverse processes and sacral ala and Mr. Alcala applied the bone graft between L4 and S1, including the iliac crest and morselized mixture. We had also mixed DBX in with this mixture of 5 mL. Next, prior to placement of bone graft, we had irrigated using saline solution as well as TXA. At the conclusion of the case, we appreciated no active bleeding. No cerebrospinal fluid (CSF) leaks. We removed retractors. We closed the posterior lumbar fascia. We anesthetized the local fascial tissues and subcuticular tissues with Exparel solution for perioperative pain control. We closed deep dermis and then closed the skin using a Prineo dressing. The patient was log-rolled to the hospital bed, extubated, and moved to the recovery room in good condition. For further details, please refer to the medical record.
[2019-09-29] MEDS: ACETAMINOPHEN TAB 650MG DOSE (2X325MG) PO PRN (01:41)
[2019-09-29 06:14] VITALS: BP 125/58
[2019-09-29 07:02] LABS: BASO # 0.1 10^3/uL (0.0-0.2); BASO % 0.8 % (0.0-1.0); EOS # 0.2 10^3/uL (0.0-0.5); EOS % 1.8 % (0.0-3.0); HEMATOCRIT 29.1 % (36.0-47.0); HEMOGLOBIN 9.4 g/dl (12.0-15.5); LYMPH # 1.4 10^3/uL (1.5-5.0); LYMPH % 13.8 % (24.0-44.0); MEAN CORPUSCULAR HEMOGLOBIN 25.2 pg (27.0-33.0); MEAN CORPUSCULAR HGB CONC 32.3 g/dl (32.0-36.5); MONO # 1.6 10^3/uL (0.0-0.8); MONO % 15.1 % (0.0-5.0); NEUTROPHILS # 6.9 10^3/uL (1.5-8.5); NEUTROPHILS % 67.1 % (36.0-66.0); PLATELET COUNT, AUTOMATED 396 10^3/uL (150-450); RED BLOOD COUNT 3.73 10^6/uL (4.00-5.40); WHITE BLOOD COUNT 10.3 10^3/uL (4.0-10.0)
[2019-09-29 07:21] LABS: BLOOD UREA NITROGEN 15 MG/DL (7-18); CALCIUM LEVEL 8.8 MG/DL (8.8-10.2); CARBON DIOXIDE LEVEL 23 MEQ/L (21-32); CHLORIDE LEVEL 98 MEQ/L (98-107); CREATININE FOR GFR 0.85 MG/DL (0.55-1.30); GLOMERULAR FILTRATION RATE > 60.0 (>32); GLUCOSE, FASTING 95 MG/DL (70-100); MAGNESIUM LEVEL 1.9 MG/DL (1.8-2.4); POTASSIUM SERUM 4.4 MEQ/L (3.5-5.1); SODIUM LEVEL 131 MEQ/L (136-145)
[2019-09-29 08:11] VITALS: BP 139/60
[2019-09-29] MEDS: DOCUSATE SODIUM 100 MG CAP PO SCH (08:11)
[2019-09-29] MEDS: amLODIPine 5 MG TAB PO SCH (08:11)
[2019-09-29] MEDS: oxyBUTYnin *DITROPAN XL* 5 MG TABCR PO SCH (08:11)
[2019-09-29] MEDS: POTASSIUM CHLORIDE 10 MEQ SR TABLET PO SCH (08:11)
[2019-09-29] MEDS: OMEPRAZOLE 20 MG CAP PO SCH (08:11)
[2019-09-29] MEDS: GABAPENTIN 300 MG CAP PO SCH (08:11)
[2019-09-29] MEDS: METAMUCIL (PSYLLIUM) PACKET PO SCH (08:12)
[2019-09-29] MEDS: FLUTICASONE PROP 0.05% NASAL SPRAY 16 GM (FLONASE) NARES SCH (08:12)
[2019-09-29] MEDS: hydroCHLOROthiazide 25 MG TAB PO SCH (08:12)
== END 2019-09-29 12:35 | disposition other institution (70) | DRG 460 ==
LOC: M OR 07:50 → M MS5PR 15:00
PROVIDERS: ADMIT Orthopaedic Surgery; ATTEND Internal Medicine
PROC: 0SG00K1 Fusion of Lumbar Vertebral Joint with Nonautologous Tissue Substitute, Posterior Approach, Posterior Column, Open Approach (ICD-10-PCS; principal; 2019-09-22)
DX: M48.061 Spinal stenosis, lumbar region without neurogenic claudication (principal); I10 Essential (primary) hypertension; K21.9 Gastro-esophageal reflux disease without esophagitis; Z79.899 Other long term (current) drug therapy; E87.6 Hypokalemia; R32 Unspecified urinary incontinence; Z79.82 Long term (current) use of aspirin